=== PATIENT | female | born 1985 | race American Indian/Alaskan Native ===

== ENCOUNTER 2019-12-08 15:44 | Emergency (ER) | payer MEDICAID ==
[2019-12-08] MEDS ORDERED: IBUPROFEN 600 MG TAB PO ONE (16:47)
[2019-12-08] MEDS ORDERED: ACETAMINOPHEN 500 MG TAB PO ONE (16:47)
--- NOTE | 2019-12-08 16:48 | Emergency Department Report ---
Chief Complaint: Upper Respiratory Infection Stated Complaint: FLU SYM/FEVER/WEAK - HPI History of Present Illness: 34 y/o female p/w cough fever tachycardia sore throat body aches sirs criteria met via tachycardia and fever likely viral in nature check xr chest rapid flu and strep states not ok for minor care Vital Signs (72 hours) 12/08/19 15:50 Temperature 103.0 F H Pulse Rate 108 H Respiratory 20 Rate Blood Pressure 114/67 O2 Sat by Pulse 96 Oximetry - Exam Vital Signs: Vital Signs 12/08/19 15:50 Temperature 103.0 F H Pulse Rate 108 H Respiratory 20 Rate Blood Pressure 114/67 O2 Sat by Pulse 96 Oximetry MSE screening note: Focused history and physical exam performed. Due to findings the following was ordered: ED Disposition for MSE Condition: Stable
[2019-12-08] MEDS ORDERED: ACETAMINOPHEN 325 MG TAB PO ONE (16:52)
[2019-12-08] MEDS ORDERED: ACETAMINOPHEN 325 MG TAB ONE (16:54)
--- NOTE | 2019-12-08 17:15 | XRay Report ---
CHEST 2 VIEWS INDICATION / CLINICAL INFORMATION: Cough. Fever. COMPARISON: None available. FINDINGS: SUPPORT DEVICES: None. HEART / MEDIASTINUM: The heart is mildly enlarged. LUNGS / PLEURA: No significant pulmonary or pleural abnormality. No pneumothorax. ADDITIONAL FINDINGS: No significant additional findings. IMPRESSION: Mild cardiomegaly. Signer Name: Lonnie Mancia MD Signed: 12/08/2019 5:11 PM Workstation Name: [id number]
[2019-12-08 20:51] VITALS: BP 115/69
--- NOTE | 2019-12-08 20:59 | Emergency Department Report ---
ED ENT HPI - General Chief complaint: Upper Respiratory Infection Stated complaint: FLU SYM/FEVER/WEAK Time Seen by Provider: 12/08/19 20:22 Source: patient Mode of arrival: Ambulatory Limitations: No Limitations - History of Present Illness Initial comments: 34-year-old -N[place]alese female presents with complaints of sore throat, headache, and tactile fever x today. She denies any cough, difficulty swallowing, or sick contacts. She rates her initial pain as a 10/10 in severity, now 0/10 in severity after ibuprofen and Tylenol. Pain worsens with swallowing. She denies swollen cervical lymph nodes. -: Sudden - Related Data Previous Rx's Medication Instructions Recorded Last Taken Type Amoxicillin [Trimox CAP] 500 mg PO BID 10 Days #20 capsule 12/08/19 Unknown Rx Ibuprofen [Motrin 800 MG tab] 800 mg PO Q8HR PRN #21 tablet 12/08/19 Unknown Rx Allergies Allergy/AdvReac Type Severity Reaction Status Date / Time No Known Allergies Allergy Verified 12/08/19 17:00 ED Dental HPI - General Chief complaint: Upper Respiratory Infection Stated complaint: FLU SYM/FEVER/WEAK Time Seen by Provider: 12/08/19 20:22 Source: patient Mode of arrival: Ambulatory Limitations: No Limitations - Related Data Previous Rx's Medication Instructions Recorded Last Taken Type Amoxicillin [Trimox CAP] 500 mg PO BID 10 Days #20 capsule 12/08/19 Unknown Rx Ibuprofen [Motrin 800 MG tab] 800 mg PO Q8HR PRN #21 tablet 12/08/19 Unknown Rx Allergies Allergy/AdvReac Type Severity Reaction Status Date / Time No Known Allergies Allergy Verified 12/08/19 17:00 ED Review of Systems ROS: Stated complaint: FLU SYM/FEVER/WEAK Other details as noted in HPI Constitutional: chills, fever. denies: malaise, weakness ENT: throat pain. denies: epistaxis Respiratory: denies: cough Cardiovascular: denies: chest pain Gastrointestinal: denies: nausea, vomiting Skin: denies: rash Neurological: headache ED Past Medical Hx - Past Medical History Previous Medical History?: No - Surgical History Past Surgical History?: No - Social History Smoking Status: Current Every Day Smoker Substance Use Type: None - Medications Home Medications: Home Medications Medication Instructions Recorded Confirmed Last Taken Type Amoxicillin [Trimox CAP] 500 mg PO BID 10 Days #20 capsule 12/08/19 Unknown Rx Ibuprofen [Motrin 800 MG tab] 800 mg PO Q8HR PRN #21 tablet 12/08/19 Unknown Rx ED Physical Exam - General Limitations: No Limitations General appearance: alert, in no apparent distress - Head Head exam: Present: atraumatic, normocephalic - Eye Eye exam: Present: normal appearance - ENT ENT exam: Present: mucous membranes moist - Expanded ENT Exam Expanded Mouth exam: Absent: drooling, trismus Throat exam: Positive: tonsillar erythema, tonsillar exudate - Neck Neck exam: Present: full ROM. Absent: tenderness, lymphadenopathy - Respiratory Respiratory exam: Present: normal lung sounds bilaterally. Absent: respiratory distress - Cardiovascular Cardiovascular Exam: Present: regular rate, normal rhythm. Absent: systolic murmur, diastolic murmur, rubs, gallop - GI/Abdominal GI/Abdominal exam: Present: soft, normal bowel sounds - Neurological Exam Neurological exam: Present: alert, oriented X3 - Psychiatric Psychiatric exam: Present: normal affect, normal mood - Skin Skin exam: Present: warm, dry, intact, normal color. Absent: rash ED Course Vital Signs 12/08/19 12/08/19 15:50 20:50 Temperature 103.0 F H 98.5 F Pulse Rate 108 H 78 Respiratory 20 16 Rate Blood Pressure 114/67 Blood Pressure 115/69 [Right] O2 Sat by Pulse 96 99 Oximetry ED Medical Decision Making - Lab Data Lab Results 12/08/19 Range/Units 16:47 Influenza A (Rapid) Negative (Negative) Influenza B (Rapid) Negative (Negative) Group A Strep Rapid Positive A (Negative) - Medical Decision Making 34-year-old female here today with complaints of sudden onset of sore throat and fever today. Pain and headache have resolved with ibuprofen and Tylenol given here in the ED. She is positive for group A strep. She is nontoxic appearing. Vitals are normal. Patient is stable for discharge home and follow-up with her primary care provider. Prescription for amoxicillin given. Discussed strict return precautions in detail with patient verbalizes understanding. Critical care attestation.: If time is entered above; I have spent that time in minutes in the direct care of this critically ill patient, excluding procedure time. ED Disposition Clinical Impression: Strep pharyngitis Disposition: - TO HOME OR SELFCARE Is pt being admited?: No Condition: Stable Instructions: Strep Throat (ED) Prescriptions: Ibuprofen [Motrin 800 MG tab] 800 mg PO Q8HR PRN #21 tablet PRN Reason: pain/fever Amoxicillin [Trimox CAP] 500 mg PO BID 10 Days #20 capsule Referrals: PRIMARY CARE,MD [Primary Care Provider] - 3-5 Days
== END 2019-12-08 21:06 | disposition home or self-care (01) ==
LOC: ED 15:44
DX: J02.0 Streptococcal pharyngitis (principal); F17.200 Nicotine dependence, unspecified, uncomplicated; Z79.899 Other long term (current) drug therapy
CPT/HCPCS: 71046; 87400; 87430